=== PATIENT | female | born 1970 | race Caucasian/White ===

== ENCOUNTER 2016-08-05 16:30 | Outpatient (RCR) | payer BC ==
[~2016-08-05 16:30] MED LIST: ADVIL200 MG PO; CALTRATE 600600 MG PO; CENTRUM SILVER1 CTB PO; GILDESS FE 1/201 TAB PO; MORPHINE 1515 MG/TAB PO; NEXIUM 40MG40 MG PO; NIGHT-TIME COL300 ML; SENOKOT S 50 MG1 TAB PO; SYNTHROID0.112 MG/T PO; VITAMIN C500 MG PO
== END 2016-08-07 15:24 | disposition home or self-care (01) ==
LOC: WSST 16:30
DX: F44.4 Conversion disorder with motor symptom or deficit (principal); J38.3 Other diseases of vocal cords